=== PATIENT | female | born 1985 | race Caucasian/White ===

== ENCOUNTER 2016-09-03 10:32 | Inpatient (IN) | payer MEDICAID, OTHER ==
[~2016-09-03] VITALS: Ht 162.6 cm; Wt 105.2 kg
[~2016-09-03 10:32] MED LIST: FERR325T74 PO; IBP600T1 PO; OXYC-12 PO; PREN1TAB39 PO
[2016-09-03] MEDS ORDERED: LACTATED RINGERS 1,000 ML IV PRN ×2 (10:55)
[2016-09-03] MEDS ORDERED: CATHETER FLUSH 10 ML SYR IV PRN (11:00)
[2016-09-03] MEDS ORDERED: CITRIC ACID/SOB CIT (BICITRA) 30 ML UDC PO ONE ×2 (11:00→11:45)
[2016-09-03] MEDS ORDERED: METOCLOPRAMIDE INJ 10 MG/2 ML (REGLAN) IV ONE ×2 (11:00→11:45)
[2016-09-03] MEDS ORDERED: FAMOTIDINE 20MG/2ML IV (PEPCID) IV ONE ×2 (11:00→11:45)
[2016-09-03 11:30] VITALS: BP 120/56
[2016-09-03 11:35] LABS: BASOPHILS % (AUTO) 0 % (0-10); EOSINOPHILS # (AUTO) 0.1 10^3/uL (0.0-0.3); EOSINOPHILS % (AUTO) 0 % (0-10); LYMPHOCYTES # (AUTO) 1.8 X 10^3 (1.0-4.0); LYMPHOCYTES % (AUTO) 14 % (12-44); MEAN CORPUSCULAR HEMOGLOBIN 27 PG (25-34); MEAN CORPUSCULAR HGB CONC 33 G/DL (32-36); MEAN CORPUSCULAR VOLUME 80 FL (80-99); MEAN PLATELET VOLUME 10.1 FL (7.4-10.4); MONOCYTES # (AUTO) 0.7 X 10^3 (0.0-1.0); MONOCYTES % (AUTO) 6 % (0-12); NEUTROPHILS # (AUTO) 10.5 X 10^3 (1.8-7.8); NEUTROPHILS % (AUTO) 80 % (42-75); PLATELET COUNT 163 10^3/uL (130-400); RED BLOOD COUNT 4.74 10^6/uL (4.35-5.85); RED CELL DISTRIBUTION WIDTH 14.1 % (10.0-14.5); WHITE BLOOD COUNT 13.1 10^3/uL (4.3-11.0)
[2016-09-03] MEDS ORDERED: ceFAZolin 2 GM/50 ML NS 50 ML ONE (11:35)
[2016-09-03] MEDS ORDERED: metroNIDAZOLE 500MG/100ML IVPB 100 ML ONE (11:35)
[2016-09-03] MEDS ORDERED: DEXAMETHASONE PF 10 MG/ML (DECADRON) VIAL ONE (11:39)
[2016-09-03] MEDS ORDERED: ONDANSETRON 4 MG/2 ML (SDV) Z0FRAN ONE (11:39)
[2016-09-03] MEDS ORDERED: fentaNYL INJECTION 100 MCG/2 ML AMP ONE (11:39)
[2016-09-03] MEDS ORDERED: OXYTOCIN/NORMAL SALINE 1,000 ML IV ONE (11:39)
[2016-09-03] MEDS ORDERED: LACTATED RINGERS 1,000 ML IV SCH ×2 (11:41)
[2016-09-03] MEDS ORDERED: metroNIDAZOLE 500MG/100ML IVPB 100 ML IV ONE (11:45)
[2016-09-03] MEDS ORDERED: ceFAZolin 2 GM/50 ML NS 50 ML IV ONE (11:45)
[2016-09-03 12:00] VITALS: BP 105/48
--- NOTE | 2016-09-03 12:16 | History & Physical ---
History and Physical Date Seen by Provider: Sep 03, 2016 Time Seen by Provider: 12:12 this patient is a 31-year-old 1 white female with an EDC of [phone] put her now 37 weeks gestation. She was seen in clinic on this date for follow-up in regard to mild oligohydramnios. Repeat exam today with ultrasound findings of an UYEN of 46. Initially the fetus that weighed 4 lbs. 10 oz. estimated on ultrasound 2 weeks ago on this date was 4 lbs. 11 oz. Biophysical profile was reassuring however patient was sent to labor and delivery specifically due to the IUGR, located by the oligohydramnios. Patient denied ruptured membranes or bleeding. She's had no other problems with this . GBS culture performed after 35 weeks gestation was positive. Allergies are to amoxicillin with childhood Reaction unknown Medications are vitamins Medical surgical social histories are per the antepartum record EGD exam is normal Neck is supple no lymphadenopathy no thyromegaly Abdomen is gravid soft nontender nondistended the fundal height small for dates Extreme show no clubbing or cyanosis. There is no Homans sign. There is some pretibial pitting edema. Pelvic exam is deferred Laboratory Tests 09/03/16 11:20 monitor shows a normal heart rate pattern with accelerations and no D cells. There are no contractions S and plan term at 37 weeks gestation with oligohydramnios and IUGR plan is to proceed with repeat now. GBS culture was positive. Will be apprised. oligohydramnios/IUGR Allergies and Home Medications Allergies Coded Allergies: amoxicillin trihydrate (Verified Allergy, 09/17/11) Home Medications Ferrous Sulfate 325 Mg Tablet, 325 MG PO BID, #60 Ref 1 (Reported) Ibuprofen 600 Mg Tab, 600 MG PO Q6HR PRN, #40 Ref 1 (Reported) Oxycodone Hcl/Acetaminophen 1 Each Tablet, 1-2 EACH PO Q4H PRN, #45 Ref 0 ( Reported) Vits W-Ca,Fe,Fa(<1MG) 1 Each Tablet, 1 EACH PO DAILY, (Reported) MIRIAM BERNAL MD Sep 03, 2016 12:16 pm
[2016-09-03] MEDS ORDERED: OXYTOCIN/NORMAL SALINE 500 ML IV SCH (12:17)
[2016-09-03] MEDS ORDERED: D5 LR IV SOLUTION 1,000 ML IV ONE (12:25)
[2016-09-03] MEDS ORDERED: TETANUS,DIPTH,PERTUSS P/F (BOOSTRIX) 0.5 ML VIAL IM ONE (12:30)
[2016-09-03] MEDS ORDERED: HYDROcodone/APAP 10 MG/325 MG (LORTAB) TAB PO PRN (12:30)
[2016-09-03] MEDS ORDERED: MEPERIDINE (DEMEROL) INJ 100 MG/ML IM PRN (12:30)
[2016-09-03] MEDS ORDERED: PROMETHAZINE INJ 25 MG/ML (PHENERGAN) AMP IM PRN (12:30)
[2016-09-03] MEDS ORDERED: METOCLOPRAMIDE INJ 10 MG/2 ML (REGLAN) IV PRN (13:15)
[2016-09-03] MEDS ORDERED: diphenhydrAMINE 50 MG/ML INJ (BENADRYL) IV PRN (13:15)
[2016-09-03] MEDS ORDERED: ONDANSETRON 4 MG/2 ML (SDV) Z0FRAN IV PRN (13:15)
[2016-09-03] MEDS ORDERED: NALOXONE 0.4 MG/ML 1 ML (NARCAN) VIAL IV PRN ×2 (13:15)
--- NOTE | 2016-09-03 13:40 | Progress Note-Post Operative ---
Post-Operative Progess Note Surgeon (s)/School Bus Driver (s) Surgeon MIRIAM BERNAL MD School Bus Driver: Lizeth Morrissey RN Pre-Operative Diagnosis oligohydramnios - IUGR - previous -37 weeks Post-Operative Diagnosis same Procedure & Operative Findings Date of Procedure 09/03/16 Procedure Performed/Findings repeat low transverse Anesthesia Type spinal analgesia Estimated Blood Loss Estimated blood loss (mL): 350 cc Specimens/Packing Specimens Removed placenta, umbilical cord, cord blood Packing: none MIRIAM BERNAL MD Sep 03, 2016 1:40 pm
[2016-09-03] MEDS: KETOROLAC 30 MG/ML VIAL IVP SCH ×2 (13:41→20:28)
[2016-09-03] MEDS: oxyCODONE/APAP 10/325MG (PERCOCET 10) TABLET PO PRN ×2 (16:01→21:42)
[2016-09-03 18:01] VITALS: BP 109/56
[2016-09-03] MEDS: DOCUSATE SODIUM 100 MG (COLACE) CAP PO SCH (21:42)
[2016-09-03 21:45] VITALS: BP 119/66
[2016-09-04] MEDS ORDERED: IBUPROFEN 800 MG (MOTRIN) TAB PO ONE (02:27)
[2016-09-04] MEDS: IBUPROFEN 800 MG (MOTRIN) TAB PO SCH ×2 (02:35→17:55)
[2016-09-04 02:36] VITALS: BP 115/67
[2016-09-04] MEDS: oxyCODONE/APAP 10/325MG (PERCOCET 10) TABLET PO PRN ×4 (04:15→17:55)
[2016-09-04 06:15] VITALS: BP 129/75
--- NOTE | 2016-09-04 07:44 | Progress Note-Standard ---
Standard Progress Note Progress Notes/Assess & Plan Date Seen by Provider: Sep 04, 2016 Time Seen by Provider: 07:43 Progress/Assessment & Plan this patient is without complaint. She is ambulating, voiding, tolerating by mouth well, denies chest pain, denies shortness of breath, denies nausea vomiting, denies headache. Patient is requesting discharge home. Vital Signs Date Time Temp Pulse Resp B/P (MAP) Pulse Ox O2 Delivery O2 Flow Rate FiO2 09/04/16 06:15 97.8 67 18 129/75 97 Room Air 09/04/16 02:36 97.9 63 18 115/67 Room Air 09/03/16 21:45 98.1 70 18 119/66 97 Room Air 09/03/16 18:01 97.4 72 20 109/56 09/03/16 12:10 09/03/16 12:00 67 20 105/48 09/03/16 11:30 96.8 79 20 120/56 I & O 09/04/16 07:00 Intake Total 3900 ml Output Total 2150 ml Balance 1750 ml vital signs are stable. Patient is afebrile. Abdomen is benign. The incision is clean dry and intact. The fundus is firm nontender below the umbilicus. Extremities show no clubbing cyanosis. There is no Homans sign. There is some pretibial pitting edema that is normal. Assessment and plan day number 1 status post repeat doing well. Plan is for routine convalescence care today and discharge home tomorrow. Could consider for discharge home today if patient request. Final Diagnosis 37 week repeat MIRIAM BERNAL MD Sep 04, 2016 7:44 am
[2016-09-04] MEDS ORDERED: DOCU100C37 PO (07:45)
[2016-09-04] MEDS ORDERED: OXYC-465 PO (07:45)
[2016-09-04] MEDS ORDERED: IBUP-1780 PO (07:45)
--- NOTE | 2016-09-04 07:47 | Discharge Instructions ---
Discharge Instructions Discharge Medications New, Converted or Re-Newed RX: RX on Chart Patient Instructions Patient Instructions: as directed Return to The Hospital For: as directed Activity & Diet Discharge Diet: No Restrictions Activity as Tolerated: No Orders-Post D/C & Referrals Follow Up Appt: RTC 1 week for incision check. Call to make follow up appt. for patient in 4 weeks. Wound Care: Remove pamela, apply benzoin and steri strips. Activity Per routine post instructions. Diet as tolerated Patient may shower or tub bathe as desired. Continue home meds MIRIAM BERNAL MD Sep 04, 2016 7:47 am
[2016-09-04 08:00] VITALS: BP 118/63
[2016-09-04] MEDS: DOCUSATE SODIUM 100 MG (COLACE) CAP PO SCH (08:26)
--- NOTE | 2016-09-04 10:56 | OPERATIVE REPORT ---
PROCEDURE PHYSICIAN: MIRIAM BERNAL DATE OF PROCEDURE: 09/03/2016 PREOPERATIVE DIAGNOSIS: 37 week gestation with previous and oligohydramnios and IUGR. POSTOPERATIVE DIAGNOSIS: 37 week gestation with previous and oligohydramnios and IUGR. OPERATIVE PROCEDURE: Repeat low transverse delivery of a viable male with Apgars of 9 and 9 at 1 and 5 minutes respectfully, weight of 4 pounds, 15 ounces and a cord arterial blood gas 7.28. Pathology for the placenta is pending. With the patient in the supine position, under satisfactory spinal anesthesia, she was prepped and draped usual fashion for abdominal surgery. Alegria cath was placed in the urinary bladder left to dependent drainage. A repeat Pfannenstiel incision was made in the lower abdomen at the site of the patient's previous Pfannenstiel incision. The abdomen was entered in the usual manner. Bladder retractor placed into position, clean scalpel used to make a 4 cm hysterotomy incision transversely across lower uterine segment that was extended by blunt dissection as well. The membranes were intact. At this point they were ruptured releasing a very small amount of amniotic fluid. A vigorous viable male was delivered via the uterine incision. Apgars of 9 and 9 at 1 and 5 minutes respectfully, weight of 4 pounds 15 ounces. Cord arterial blood pH of 7.28 and a time of 12:39. The infant was bulb suctioned on delivery of the head. A nuchal cord was easily released and delivery completed. The umbilical cord was doubly clamped and cut and passed to Dr. Shen, the mustanger in attendance for delivery. Cord bloods were obtained as noted above. The placenta delivered spontaneously Munson. It was somewhat calcified but otherwise normal and did have a 3 vessel cord. It was sent to pathology for permanent section. The uterus was exteriorized, the interior wiped clean with a wet laparotomy sponge. Uterine incision then closed with running locked suture of 2-0 Vicryl. Hemostasis was complete. The uterus was returned to the abdominal cavity. All blood clot and debris removed from the abdominal cavity. With sponge and needle counts correct and hemostasis assured, the anterior parietal peritoneum was closed with running suture of 2-0 Vicryl. Rectus muscles were closed with that suture as well. The rectus fascia was closed with 2-0 Vicryl and the skin was stapled. Sponge and needle counts were correct on completion of procedure. Estimated blood loss was around 350 mL. The patient tolerated the procedure well, and was transferred to the recovery in stable condition. The had been taken stable to the full term nursery under the care of Dr. Shen. Job ID: [id number] Dictated Date: 09/03/2016 13:54:23 Posting Machine Operator Date: 09/04/2016 10:51:25 / tyler
--- NOTE | 2016-09-04 14:41 | Anesthesia-Regional Post-Op ---
Regional Patient Condition Mental Status: Alert, Oriented x3 Circulation: Same as Pre-Op Headache: Absent Sensation: Full Recovery Motor Block: Absent Post Op Complications Complications None Follow Up Care/Instructions Patient Instructions None needed. Anesthesia/Patient Condition Patient is doing well, no complaints, stable vital signs, no apparent adverse anesthesia problems. No complications reported per nursing. CHRISTOPHER WADDELL CRNA Sep 04, 2016 14:41
[2016-09-04 17:00] VITALS: BP 134/83
[2016-09-04 20:05] VITALS: BP 110/64
[2016-09-05] MEDS: IBUPROFEN 800 MG (MOTRIN) TAB PO SCH ×3 (00:13→14:36)
[2016-09-05] MEDS: DOCUSATE SODIUM 100 MG (COLACE) CAP PO SCH ×2 (00:13→08:41)
[2016-09-05 00:15] VITALS: BP 121/73
[2016-09-05] MEDS: oxyCODONE/APAP 10/325MG (PERCOCET 10) TABLET PO PRN ×3 (01:54→14:36)
[2016-09-05 06:40] VITALS: BP 112/74
--- NOTE | 2016-09-05 07:25 | Progress Note-Standard ---
Standard Progress Note Progress Notes/Assess & Plan Date Seen by Provider: Sep 05, 2016 Time Seen by Provider: 07:23 Progress/Assessment & Plan this patient is without complaint. She is ambulating, voiding, tolerating by mouth well, denies chest pain, denies shortness of breath, denies nausea vomiting, denies headache. Patient is requesting discharge home. Vital Signs Date Time Temp Pulse Resp B/P (MAP) Pulse Ox O2 Delivery O2 Flow Rate FiO2 09/04/16 06:15 97.8 67 18 129/75 97 Room Air 09/04/16 02:36 97.9 63 18 115/67 Room Air 09/03/16 21:45 98.1 70 18 119/66 97 Room Air 09/03/16 18:01 97.4 72 20 109/56 09/03/16 12:10 09/03/16 12:00 67 20 105/48 09/03/16 11:30 96.8 79 20 120/56 I & O 09/04/16 07:00 Intake Total 3900 ml Output Total 2150 ml Balance 1750 ml vital signs are stable. Patient is afebrile. Abdomen is benign. The incision is clean dry and intact. The fundus is firm nontender below the umbilicus. Extremities show no clubbing cyanosis. There is no Homans sign. There is some pretibial pitting edema that is normal. Assessment and plan day number 1 status post repeat doing well. Plan is for routine convalescence care today and discharge home tomorrow. Could consider for discharge home today if patient request. September 05, 2016 Patient without complaint. She is ambulating, voiding, tolerating by mouth well , has good pain control, and is requesting discharge home. Vital Signs Date Time Temp Pulse Resp B/P (MAP) Pulse Ox O2 Delivery O2 Flow Rate FiO2 09/05/16 00:15 97.5 62 18 121/73 97 Room Air 09/04/16 20:05 96.9 62 18 110/64 99 Room Air 09/04/16 17:00 97.0 66 20 134/83 97 09/04/16 08:00 97.6 55 20 118/63 98 Room Air vital signs are stable. Patient is afebrile. Fundus is firm below the umbilicus and nontender. The surgical incision is clean dry and intact. Extremities show no clubbing or cyanosis. There is no Homans sign. assessment and plan postoperative day number 2 status post repeat doing well. Patient will be allowed discharge home with follow-up in clinic Final Diagnosis 37 week repeat delivery MIRIAM BERNAL MD Sep 05, 2016 7:24 am
[2016-09-05] MEDS ORDERED: TETANUS,DIPTH,PERTUSS P/F (BOOSTRIX) 0.5 ML VIAL IM ONE (08:34)
[2016-09-05 08:46] VITALS: BP 138/78
== END 2016-09-05 16:40 | disposition home or self-care (01) | DRG 765 ==
LOC: LDRP 10:32
PROVIDERS: ADMIT Obstetrics & Gynecology; ATTEND Obstetrics & Gynecology
PROC: 10D00Z1 Extraction of Products of Conception, Low, Open Approach (ICD-10-PCS; principal; 2016-09-03 12:15)
DX: O41.03X0 Oligohydramnios, third trimester, not applicable or unspecified (principal); O36.5930 Maternal care for other known or suspected poor fetal growth, third trimester, not applicable or unspecified; O99.824 Streptococcus B carrier state complicating childbirth; O34.211 Maternal care for low transverse scar from previous cesarean delivery; O69.81X0 Labor and delivery complicated by cord around neck, without compression, not applicable or unspecified; Z37.0 Single live birth; Z3A.37 37 weeks gestation of pregnancy; Z23 Encounter for immunization
CPT/HCPCS: 36415; 85025; 86850; 86900; 86901; 90715; 94664